=== PATIENT | male | born 1990 | race African-American/Black ===

== ENCOUNTER 2016-11-25 08:23 | Emergency (ER) | payer SELFPAY ==
[2016-11-25] MEDS ORDERED: methylPREDNISolone Sod Succ/PF 125 MG/2 ML VIAL ONE (08:36)
== END 2016-11-25 08:52 | disposition home or self-care (01) ==
LOC: NAV ERS 08:23
DX: J45.909 Unspecified asthma, uncomplicated (principal)
CPT/HCPCS: 94640; J2930; J7620

== ENCOUNTER 2017-04-03 09:14 | Emergency (ER) | payer SELFPAY ==
[2017-04-03] MEDS ORDERED: predniSONE 20 MG TAB ONE (09:41)
== END 2017-04-03 10:22 | disposition home or self-care (01) ==
LOC: NAV ERS 09:14
DX: J45.901 Unspecified asthma with (acute) exacerbation (principal); Z79.899 Other long term (current) drug therapy
CPT/HCPCS: J7506; J7620